=== PATIENT | female | born 2000 | race Caucasian/White ===

== ENCOUNTER 2022-04-22 19:44 | Emergency (ER) | payer OTHER ==
[2022-04-22 20:12] LABS: HEMOGLOBIN 13.3 gm/dl (12.3-15.3); RED BLOOD COUNT 4.57 M/UL (4.00-5.10); WHITE BLOOD COUNT 5.4 K/UL (4.5-11.0)
[2022-04-22 20:33] LABS: BUN/CREATININE RATIO 21 (0-10)
== END 2022-04-22 22:30 | disposition home or self-care (01) ==
LOC: ER1 19:44
PROVIDERS: Emergency Medicine
DX: R10.32 Left lower quadrant pain (principal); R10.814 Left lower quadrant abdominal tenderness; R05.9 Cough, unspecified; F17.200 Nicotine dependence, unspecified, uncomplicated; Z20.822 Contact with and (suspected) exposure to COVID-19
CPT/HCPCS: 0240U; 80053; 81001; 83690; 84703; 85025; 87086; 99284

== ENCOUNTER 2022-05-03 21:30 | Emergency (ER) | payer OTHER ==
[2022-05-03 21:54] LABS: HEMOGLOBIN 13.5 gm/dl (12.3-15.3); RED BLOOD COUNT 4.6 M/UL (4.00-5.10); WHITE BLOOD COUNT 5.5 K/UL (4.5-11.0)
[2022-05-03 22:24] LABS: BUN/CREATININE RATIO 17 (0-10)
== END 2022-05-04 00:57 | disposition left against medical advice (07) ==
LOC: ER1 21:30
PROVIDERS: Physician Assistant
DX: Z53.21 Procedure and treatment not carried out due to patient leaving prior to being seen by health care provider (principal)
CPT/HCPCS: 71046; 80053; 82550; 82553; 84484; 85025; 93005